=== PATIENT | female | born 1980 | race Caucasian/White ===

== ENCOUNTER → 2020-11-07 | Day surgery (SDC) | payer OTHER ==
[~2020-11-07] VITALS: Ht 165.1 cm; Wt 91.3 kg
[~2020-11-07] MED LIST: HYDROCODON-ACE1 EAC2 PO; NEXIUM40 MG PO; NORCO 5-325 TA1 EACH PO
[2020-11-07 07:45] LABS: HCG (URINE) SCREEN NEGATIVE (NEGATIVE)
[2020-11-07 08:10] LABS: HGB 12.5 g/dl (12.5-16.0); MCH 27.4 pg (25.0-31.0); MCHC 32.9 g/dL (32.0-36.0); MCV 83.2 fL (78.0-100.0); MPV 9.6 fL (6.0-9.5); RBC 4.57 M/uL (4.20-5.40); RDW 14.1 % (11.5-14.0); WBC 9.9 K/uL (4.0-10.5)
[2020-11-07 08:27] LABS: ALBUMIN 3.8 g/dL (3.4-5.0); BILIRUBIN - TOTAL 0.4 mg/dL (0.2-1.0); CREATININE 0.6 mg/dL (0.51-0.95); POTASSIUM 3.8 mmol/L (3.5-5.1); TOTAL PROTEIN 7.8 g/dL (6.4-8.2)
== END | disposition home or self-care (01) ==
LOC: FAS 07:07
PROVIDERS: Anesthesiology; Surgery
DX: D17.1 Benign lipomatous neoplasm of skin and subcutaneous tissue of trunk (principal); D17.24 Benign lipomatous neoplasm of skin and subcutaneous tissue of left leg; D17.23 Benign lipomatous neoplasm of skin and subcutaneous tissue of right leg; D17.22 Benign lipomatous neoplasm of skin and subcutaneous tissue of left arm; D17.21 Benign lipomatous neoplasm of skin and subcutaneous tissue of right arm; K21.9 Gastro-esophageal reflux disease without esophagitis; F98.8 Other specified behavioral and emotional disorders with onset usually occurring in childhood and adolescence; F41.1 Generalized anxiety disorder; E78.5 Hyperlipidemia, unspecified; G47.00 Insomnia, unspecified; G43.909 Migraine, unspecified, not intractable, without status migrainosus; F41.0 Panic disorder [episodic paroxysmal anxiety]; E55.9 Vitamin D deficiency, unspecified; Z79.891 Long term (current) use of opiate analgesic; Z79.899 Other long term (current) drug therapy
CPT/HCPCS: 36415; 80053; 84703; 93005; J2250; J2405; J2704; J3010; J7120

== ENCOUNTER 2021-03-06 15:10 | Emergency (ER) | payer OTHER ==
[2021-03-06] MEDS ORDERED: BACLOFEN 10MG T10 MG PO (18:24)
== END 2021-03-06 18:35 | disposition home or self-care (01) ==
LOC: FER 15:10
DX: S39.012A Strain of muscle, fascia and tendon of lower back, initial encounter (principal); S90.32XA Contusion of left foot, initial encounter; W17.89XA Other fall from one level to another, initial encounter; Y92.009 Unspecified place in unspecified non-institutional (private) residence as the place of occurrence of the external cause
CPT/HCPCS: 72100; 73630; 96372; J1100; J1885

== ENCOUNTER 2021-04-10 14:08 | Emergency (ER) | payer OTHER ==
[~2021-04-10 14:08] MED LIST changes: +BACLOFEN 10MG T10 MG PO
[2021-04-10 17:21] LABS: BASOPHIL 0.7 % (0-2); EOSINOPHIL 1.8 % (0-5); HCT 38.7 % (37.0-47.0); HGB 12.3 g/dl (12.5-16.0); LYMPHOCYTE 28.3 % (15-48); MCH 26.9 pg (25.0-31.0); MCHC 31.8 g/dL (32.0-36.0); MCV 84.7 fL (78.0-100.0); MONOCYTE 6.5 % (0-12); MPV 9.3 fL (6.0-9.5); NEUTROPHIL 62.5 % (41-80); NRBC 0; PLT 425 K/uL (150-400); RBC 4.57 M/uL (4.20-5.40); RDW 15.7 % (11.5-14.0); WBC 8.5 K/uL (4.0-10.5)
[2021-04-10 17:32] LABS: BILIRUBIN NEGATIVE (NEGATIVE); BLOOD NEGATIVE Ery/uL (NEGATIVE); CLARITY CLEAR (CLEAR); COLOR YELLOW (YELLOW); GLUCOSE (U) NORMAL (NORMAL); LEUKOCYTES NEGATIVE Leu/uL (NEGATIVE); NITRITE NEGATIVE (NEGATIVE); PROTEIN NEGATIVE (NEGATIVE); UROBILINOGEN 0.2 mg/dL (0.2-1.0); pH 6.5 (5.0-9.0)
[2021-04-10 17:45] LABS: ALBUMIN 4.2 g/dL (3.4-5.0); BILIRUBIN - TOTAL 0.5 mg/dL (0.2-1.0); BUN/CREAT RATIO (CALC) 10.7 RATIO; CREATININE 0.75 mg/dL (0.51-0.95); GLOBULIN (CALCULATION) 3.4 g/dL; POTASSIUM 3.8 mmol/L (3.5-5.1); TOTAL PROTEIN 7.6 g/dL (6.4-8.2)
== END 2021-04-10 19:16 | disposition home or self-care (01) ==
LOC: FER 14:08
PROVIDERS: Emergency Medicine
DX: D64.9 Anemia, unspecified (principal)
CPT/HCPCS: 36415; 80053; 81003; 85025; 99284